=== PATIENT | male | born 1955 | race Caucasian/White ===

== ENCOUNTER 2017-05-04 12:14 | Emergency (ER) | payer BC ==
[2017-05-04 12:36] VITALS: O2SAT 99
--- NOTE | 2017-05-04 12:49 | C.PDOC ---
History Of Present Illness 62-YEAR-OLD FEMALE, PRESENTS TO THE EMERGENCY DEPARTMENT, REFERRED PMD FOR ANGIO L THIGH. +LIPOSARCOMA POSTERIOR L THIGH X 2-3 MONTHS. +PAIN TO AREA. NO OTHER ASSOC SX EXAM NAD NONTOXIC EXT L LEG +FIRM MASS LOWER POSTERIOR THIGH. AROM WO DIFF. NEURO INTACT Time Seen by Provider: 05/04/17 12:44 Chief Complaint (Nursing): Lower Extremity Problem/Injury History Per: Patient History/Exam Limitations: no limitations Onset/Duration Of Symptoms: Days Current Symptoms Are (Timing): Still Present Past Medical History Reviewed: Historical Data, Nursing Documentation, Vital Signs Vital Signs: Last Vital Signs Temp 97.6 F 05/04/17 12:32 Pulse 66 05/04/17 12:32 Resp 16 05/04/17 12:32 BP 141/90 05/04/17 12:32 Pulse Ox 99 05/04/17 13:06 - Medical History PMH: HTN Surgical History: Tonsillectomy Family History: States: No Known Family Hx - Social History Hx Alcohol Use: Yes Hx Substance Use: No - Immunization History Hx Tetanus Toxoid Vaccination: No Hx Influenza Vaccination: Yes Hx Pneumococcal Vaccination: No Review Of Systems Except As Marked, All Systems Reviewed And Found Negative. Constitutional: Negative for: Fever Cardiovascular: Negative for: Chest Pain Respiratory: Negative for: Shortness of Breath Gastrointestinal: Negative for: Vomiting Musculoskeletal: Positive for: Leg Pain Physical Exam - Physical Exam Appears: Non-toxic, No Acute Distress Skin: Warm, Dry, No Rash Eye(s): bilateral: Normal Inspection Neck: Normal ROM Cardiovascular: Rhythm Regular, No Murmur Respiratory: Normal Breath Sounds, No Accessory Muscle Use Extremity: Other (L LEG +FIRM MASS LOWER POSTERIOR THIGH. AROM WO DIFF.) Neurological/Psych: Oriented x3 ED Course And Treatment - Laboratory Results Result Diagrams: 05/04/17 13:15 05/04/17 13:15 O2 Sat by Pulse Oximetry: 99 Progress - Re-Evaluation Re-evaluation Note: 05/04/17 14:27 REPORT TO BE FOLLOWED UP BY PMD. P/S WISHES DC NOW IN ORDER TO MAKE SURGEON APPT IN OR. EXAM UNCH. - Data Reviewed Data Reviewed: Lab, Diagnostic imaging, Old records Disposition Counseled Patient/Family Regarding: Diagnosis, Need For Followup - Disposition Disposition: HOME/ ROUTINE Disposition Time: 14:27 Condition: GOOD Additional Instructions: FOLLOW UP WITH YOUR PMD THE RESULTS OF YOUR CT SCAN. SEE YOUR SURGEON SCHEDULED. Forms: [facility] (Kyrgyz), General Discharge Instructions - Clinical Impression Clinical Impression: Leg mass - Scribe Statement The provider has reviewed the documentation as recorded by the Scribe (Sheila Arriaga) All medical record entries made by the Scribe were at my direction and personally dictated by me. I have reviewed the chart and agree that the record accurately reflects my personal performance of the history, physical exam, medical decision making, and the department course for this patient. I have also personally directed, reviewed, and agree with the discharge instructions and disposition.
[2017-05-04 13:25] LABS: HEMATOCRIT 43.3 % (35.0-51.0); MEAN CELL VOLUME 94.5 fL (80.0-94.0); MEAN CORPUSCULAR HEMOGLOBIN 31.6 pg (27.0-31.0); MEAN CORPUSCULAR HGB CONC 33.5 g/dL (33.0-37.0); MEAN PLATELET VOLUME 10.5 fL (7.2-11.7); RED CELL DISTRIBUTION WIDTH 13.2 % (11.5-14.5); WHITE BLOOD COUNT 12.9 K/uL (4.8-10.8)
[2017-05-04 13:34] LABS: CHLORIDE 98 mmol/L (98-107); POTASSIUM 4.4 mmol/L (3.6-5.2); SODIUM 140 mmol/L (132-148)
[2017-05-04 13:37] LABS: BLOOD UREA NITROGEN 8 mg/dL (9-20); CARBON DIOXIDE 26 mmol/L (22-30); GFR AFRICAN-AMERICAN > 60; GLUCOSE,RANDOM 89 mg/dL (75-110)
[2017-05-04] MEDS ORDERED: Iodixanol 320 MG/ML 100 ML BOTTLE IV ONE (14:04)
[2017-05-04 14:45] VITALS: BP 129/82; PULSE 68; RESP 18; TEMP 97.9
--- NOTE | 2017-05-04 15:05 | CT ---
PROCEDURE: CT angiogram left thigh HISTORY: L THIGH MASS HO LIPOSARCOMA COMPARISON: None available. TECHNIQUE: Technique: CT angiography of the abdomen, pelvis and bilateral lower extremities performed in the arterial phase of enhancement. Coronal and sagittal reformats, and well as rotating MIP images of the vessels generated at the workstation. Intravenous contrast dose: Visipaque 300, 100 cc Radiation dose: Total exam DLP = 854 mGy-cm. This CT exam was performed using one or more of the following dose reduction techniques: Automated exposure control, adjustment of the mA and/or kV according to patient size, and/or use of iterative reconstruction technique. FINDINGS: The distal left external iliac artery, left common and cisternal arteries and left popliteal artery appear widely patent as imaged limited atherosclerotic plaque identified at the left common femoral artery. No significant stenosis is encountered. Left deep femoral artery appears widely patent. There is a 9.0 x 6.5 x 22.6 cm heterogeneous mass with limited heterogeneous enhancement identified at the inferior portion of the within an intermediate density component of a predominate fatty mass at the posterior thigh compartment compatible with liposarcoma in this patient with a known history of a liposarcoma. There is no prior comparison available at this time. The mass displaces the mid to distal left SFA without stenosis. It invades the biceps femoris muscle and extends from the upper left thigh down to the upper left popliteal fossa. No bony involvement is appreciated this time. IMPRESSION: 1. Trace atherosclerosis appreciate the left common femoral artery with the left common and superficial femoral arteries appearing widely patent as well as the visualize left popliteal artery. 2. 22.6 cm irregular fatty mass with partial enhancement most compatible with a liposarcoma apparently invading the biceps femoris muscle and displacing the mid to distal left SFA anteriorly somewhat without stenosis.
== END 2017-05-04 14:30 | disposition home or self-care (01) ==
LOC: C.ER 12:14
DX: R22.42 Localized swelling, mass and lump, left lower limb (principal)
CPT/HCPCS: 73706; 80048; 85027; 99284; Q9967